=== PATIENT | female | born 2000 | race Caucasian/White ===

== ENCOUNTER 2020-05-11 18:47 | Outpatient (REF) | payer MEDICAID, SELFPAY ==
[2020-05-14 00:40] LABS: Chlamydia amplified RNA Negative (Negative); N gonorrhoeae amplified RNA Negative (Negative); Source VAGINAL
== END 2020-05-11 19:07 ==
LOC: NCHCN 18:47
PROVIDERS: PCP Specialist/Technologist Athletic Trainer; Visit Provider Nurse Practitioner Family
DX: Z00.00 Encounter for general adult medical examination without abnormal findings (principal)
CPT/HCPCS: 87491; 87591

== ENCOUNTER 2021-07-09 18:24 | Outpatient (REF) | payer MEDICAID, SELFPAY ==
[2021-07-11 18:22] LABS: COVID-19 RT-PCR UVMMC Result Negative (Negative)
== END 2021-07-09 18:25 | disposition home or self-care (01) ==
LOC: LBN 18:24
PROVIDERS: PCP Specialist/Technologist Athletic Trainer; Visit Provider Physician Assistant Medical
DX: J02.9 Acute pharyngitis, unspecified (principal); Z20.822 Contact with and (suspected) exposure to COVID-19
CPT/HCPCS: U0003; 87070

== ENCOUNTER 2022-01-17 18:34 | Outpatient (REF) | payer MEDICAID, SELFPAY ==
[2022-01-19 11:12] LABS: Hepatitis C Ab w Rflx HCV PCR Negative (Negative)
[2022-01-19 11:24] LABS: HIV-1/2 Ag & Ab Screen Negative (Negative)
[2022-01-19 11:36] LABS: Syphilis Serology (RPR) Negative (Negative)
== END 2022-01-17 18:35 | disposition home or self-care (01) ==
LOC: NCHCN 18:34
PROVIDERS: PCP Specialist/Technologist Athletic Trainer; Visit Provider Nurse Practitioner Family
DX: Z11.3 Encounter for screening for infections with a predominantly sexual mode of transmission (principal); Z11.4 Encounter for screening for human immunodeficiency virus [HIV]; Z11.59 Encounter for screening for other viral diseases
CPT/HCPCS: 86803; 87389; 86592

== ENCOUNTER 2023-02-09 12:25 | Outpatient (REF) | payer BC, SELFPAY ==
--- NOTE | 2023-02-09 10:00 | PAPFT_PTH ---
PATIENT: Joleen Joyner LOC: [facility]#:[id number] AGE/SX: 22/F ROOM: RE02/09/[address]: Kristina Nguyễn : 2000 BED: DIS: 02/09/2023 SPEC #: [id number] RECD: 02/09/23 15:57 STATUS: TERESE REQ #: [id number] KAYLIE: 02/09/23 10:[address]: Kristina Nguyễn DEPT: [facility] Cytology RECD BY: Gudelia Woo Tissues: 1 - CX/ENDOCX FOR PAP SMEARS Procedures: PAP THIN PREP/[facility] Screening HPV DNA PROBE Comments: [id number] (HPV 16 & 18/45) (CHLAMYDIA/GC)
[2023-02-10 14:59] LABS: Chlamydia Result Negative (Negative); GC Result Negative (Negative)
== END 2023-02-09 12:26 | disposition home or self-care (01) ==
LOC: NCHCN 12:25
PROVIDERS: PCP Nurse Practitioner Family; Visit Provider Nurse Practitioner Family
DX: Z11.3 Encounter for screening for infections with a predominantly sexual mode of transmission (principal); Z12.4 Encounter for screening for malignant neoplasm of cervix; R87.610 Atypical squamous cells of undetermined significance on cytologic smear of cervix (ASC-US); Z01.419 Encounter for gynecological examination (general) (routine) without abnormal findings; Z11.51 Encounter for screening for human papillomavirus (HPV); R87.810 Cervical high risk human papillomavirus (HPV) DNA test positive
CPT/HCPCS: 87491; 87591; 88142; 87624

== ENCOUNTER 2023-06-15 20:01 | Outpatient (REF) | payer BC, SELFPAY | END 2023-06-15 20:02 | disposition home or self-care (01) | LOC: LBN 20:01 | PROVIDERS: PCP Nurse Practitioner Family; Visit Provider Physician Assistant Medical | DX: N89.8 Other specified noninflammatory disorders of vagina (principal) | CPT/HCPCS: 87480; 87510; 87660 ==

== ENCOUNTER 2024-02-19 21:35 | Outpatient (REF) | payer BC, SELFPAY ==
--- NOTE | 2024-02-19 08:50 | PAPFT_PTH ---
PATIENT: Joleen Jyoner LOC: [facility] U#:[id number] AGE/SX: 23/F ROOM: RE02/19/[address]: Kristina Nguyễn : 2000 BED: DIS: 02/19/2024 SPEC #: [id number] RECD: 02/20/24 13:14 STATUS: TERESE REQ #: [id number] KAYLIE: 02/19/24 08:[address]: Kristina Nguyễn DEPT: [facility] Cytology RECD BY: Gudelia Woo Tissues: 1 - CX/ENDOCX FOR PAP SMEARS Procedures: PAP THIN PREP/[facility]VM Screening HPV DNA PROBE Comments: [id number] (HPV 16 & 18/45) (CHLAMYDIA/GC)
[2024-02-21 13:05] LABS: Chlamydia Result Negative (Negative); GC Result Negative (Negative)
== END 2024-02-19 21:36 | disposition home or self-care (01) ==
LOC: NCHCN 21:35
PROVIDERS: PCP Nurse Practitioner Family; Visit Provider Nurse Practitioner Family
DX: Z11.51 Encounter for screening for human papillomavirus (HPV) (principal); Z01.419 Encounter for gynecological examination (general) (routine) without abnormal findings
CPT/HCPCS: 87491; 87591; 88142; 87624

== ENCOUNTER 2025-06-02 12:37 | Outpatient (REF) | payer BC, SELFPAY ==
--- NOTE | 2025-06-02 16:45 | PAPFT_PTH ---
PATIENT: Joleen Joyenr LOC: [facility] U#:[id number] AGE/SX: 24/F ROOM: RE06/02/[address]: Kristina Nguyễn : 2000 BED: DIS: 06/02/2025 SPEC #: [id number] RECD: 06/03/25 13:10 STATUS: TERESE MARTINES #: [id number] KAYLIE: 06/02/25 16:[address]: Kristina Nguyễn DEPT: [facility] Cytology RECD BY: Gudelia Woo Tissues: 1 - CX/ENDOCX FOR PAP SMEARS Procedures: PAP THIN PREP/[facility] Screening Comments: [id number] (CHLAMYDIA/GC)
[2025-06-04 12:14] LABS: Chlamydia Result Negative (Negative); GC Result Negative (Negative)
== END 2025-06-02 12:38 | disposition home or self-care (01) ==
LOC: LBN 12:37
PROVIDERS: PCP Nurse Practitioner Family; Visit Provider Nurse Practitioner Family
DX: Z12.4 Encounter for screening for malignant neoplasm of cervix (principal); Z11.3 Encounter for screening for infections with a predominantly sexual mode of transmission
CPT/HCPCS: 87491; 87591; 88142